=== PATIENT | female | born 1945 | race Caucasian/White ===

== ENCOUNTER 2016-09-29 13:21 | Emergency (ER) | payer MEDICARE, OTHER ==
[~2016-09-29] VITALS: Ht 165.1 cm; Wt 89.8 kg
[~2016-09-29 13:21] MED LIST: CHLO25TA2 PO; HYDR-3714 PO; NFNEB10T PO; OXYC-12 PO; PRAM0.252 PO
[2016-09-29] MEDS ORDERED: CYCL10TA9 (13:33)
[2016-09-29] MEDS ORDERED: NFNEB10T (13:33)
[2016-09-29] MEDS ORDERED: PRAM0.257 (13:33)
[2016-09-29] MEDS ORDERED: CHLO25TA22 (13:33)
--- NOTE | 2016-09-29 13:33 | ED Upper Extremity ---
General Chief Complaint: Laceration Stated Complaint: FALL/RIGHT ARM/LEG INJURY Nursing Triage Note: AMBULATED TO ROOM 06 WITHOUT DIFFICULTY. STATES SHE FELL OFF HER PORCH ONTO HER LEFT ARM. LEFT ARM BLEEDING THRU BANDAGE. Nursing Sepsis Screen: No Definite Risk Source: patient Exam Limitations: no limitations History of Present Illness Time seen by provider: 13:32 Initial Comments To ER with reports of a fall while going down her steps at home. She injured the dorsal aspect of the right forearm in the lateral aspect of the right lower leg. Denies hitting her head. Denies neck pain abdomen chest or pelvis pain. Denies hip pain. She is ambulatory to room 6. Her complaint is of a rather large laceration to the dorsal aspect of the right forearm. Onset: just prior to arrival Severity: moderate Pain/Injury Location: right arm Method of Injury: unknown Modifying Factors: Worse With Movement Allergies and Home Medications Allergies Coded Allergies: No Known Drug Allergies (Unverified , 10/03/14) Home Medications Amoxicillin/Potassium Clav 1 Each Tablet #14 1 EACH PO BID Prescribed by: ABDI CASTILLO on 09/29/16 1522 Chlorthalidone 25 Mg Tablet 25 MG PO DAILY (Reported) Chlorthalidone 25 Mg Tablet #90 (Reported) Cyclobenzaprine HCl 10 Mg Tablet #30 (Reported) Hydrocodone Bit/Acetaminophen 1 Tab Tablet 1 TAB PO Q8H PRN PRN PAIN (Reported) Hydrocodone/Acetaminophen 1 Each Tablet #14 1 EACH PO Q6H PRN PRN PAIN Prescribed by: ABDI CASTILLO on 09/29/16 1522 Nebivolol HCl 10 Mg Tab #30 (Reported) Nebivolol Hcl 10 Mg Tablet 5 MG PO DAILY (Reported) TAKES 1/2 (10MG) TABLET Oxycodone Hcl/Acetaminophen 1 Each Tablet #60 1-2 TAB PO Q4-6HR PRN PRN PAIN Prescribed by: JAZMÍN LOPEZ on 10/20/14 0748 Pramipexole Di-HCl 0.25 Mg Tablet #60 (Reported) Pramipexole Di-Hcl 0.25 Mg Tablet 0.25-0.5 MG PO HS PRN PRN RESTLESSNESS ( Reported) TAKES 1-2 (0.25MG) TABLETS Constitutional: see HPI EENTM: see HPI Respiratory: no symptoms reported Cardiovascular: no symptoms reported Genitourinary: no symptoms reported Musculoskeletal: see HPI Skin: no symptoms reported Psychiatric/Neurological: No Symptoms Reported Past Zozxvks-Mlyikd-Nwevey Hx Patient Social History Recent Foreign Travel: No Contact w/Someone Who Travel: No Recent Infectious Disease Expo: No Immunizations Up To Date Tetanus Booster (TDap): Less than 5yrs Date of Influenza Vaccine: Jul 09, 2014 Surgeries HX Surgeries: Yes Respiratory Hx Respiratory Disorders: No Cardiovascular Hx Cardiac Disorders: Yes Neurological Hx Neurological Disorders: Yes (RESTLESS LEGS) Reproductive System Hx Reproductive Disorders: No Genitourinary Hx Genitourinary Disorders: No Gastrointestinal Hx Gastrointestinal Disorders: Yes Gastrointestinal Disorders: Irritable Bowel Musculoskeletal Hx Musculoskeletal Disorders: Yes (OSTEOARTHRITIS) Endocrine Hx Endocrine Disorders: No HEENT HX ENT Disorders: Yes (GLASSES) Cancer Hx Cancer: No Psychosocial Hx Psychiatric Problems: No Integumentary HX Skin/Integumentary Disorder: No Blood Transfusions Hx Blood Disorders: No Adverse Reaction to a Blood Tr: No Family Medical History Family Medial History: Cardiovascular disease 19 MOTHER G8 BROTHER G8 SISTER Coronary thrombosis G8 BROTHER Diabetes mellitus 19 FATHER FH: pancreatic cancer 19 FATHER Physical Exam Vital Signs Vital Sign - Last 12Hours 09/29/16 13:27 Temp 99.5 Pulse 85 Resp 16 B/P 116/79 Pulse Ox 97 Capillary Refill : Less Than 3 Seconds General Appearance: WD/WN no apparent distress HEENT: PERRL/EOMI normal ENT inspection Neck: non-tender full range of motion Respiratory: no respiratory distress no accessory muscle use Gastrointestinal: non tender soft Shoulder: normal inspection non-tender Elbow/Forearm: Right, ecchymosis, pain, soft tissue tenderness, swelling Hand: normal inspection, non-tender, Right Neurologic/Tendon: normal sensation normal motor functions Neurologic/Psychiatric: alert normal mood/affect oriented x 3 Skin: normal color warm/dry Laceration Repair : Wound Location: Upper Extremities Wound Length (cm): 5 Wound's Depth, Shape: into muscle Wound Explored: clean Irrigated w/ Saline (ccs): 400 Betadine Prep?: Yes Anesthesia: Lidocaine w/ Epi Volume Anesthetic (ccs): 8 Wound Debrided: minimal Suture: Ethlion Suture Size: 4-0 Number of Sutures: 6 Layer Closure?: 1 Number Deep Layer Sutures: 0 Progress Due to the heavily bleeding nature of this wound it did discuss the case with Dr. Torres. He agrees that since this is a dorsal laceration and since she has a strong radial pulse angiogram was not necessary. Recommends thorough irrigation, closure. As such I anesthetized with 8 ml lidocaine 1 percent with epinephrine. Wound was then irrigated with a 500 mL bottle of saline with chlorhexidine and a splash shield. No foreign bodies were identified. There was clotted blood that remained in place. Laceration extended into muscle. A total of 6 sutures were placed, simple interrupted size 4-0 Ethilon thru skin/ sub-q tissues. A Stone drain was placed at the most ulnar side of the wound given the degree of swelling to allow for drainage. A pressure dressing was then applied over top of nonadherent gauze. Progress/Results/Core Measures Results/Orders My Orders Orders-ABDI CASTILLO APRN Forearm, Right, 2 Views (09/29/16 13:31) Tibia/Fibula, Right, 2 Views (09/29/16 13:31) Ceftriaxone Injection (Rocephin Injectio (09/29/16 13:45) Lidocaine/Epi 1% 1:100,000 (Xylocaine /E (09/29/16 13:45) Lidocaine 1% Injection (Xylocaine 1% Inj (09/29/16 13:45) Hand, Right, 3 Views (09/29/16 13:49) Hydrocodone/Apap 5/325 Tablet (Lortab 5 (09/29/16 14:15) Hydrocodone/Apap 5/325 Tablet (Lortab 5 (09/29/16 14:09) Ondansetron Oral Dissolve Tab (Zofran (09/29/16 15:00) Dipht,Pertuss(Acell),Tet Adult (Boostrix (09/29/16 15:45) Medications Given in ED Current Medications Medications Dose Ordered Sig/Paul Route Start Time Stop Time Status Last Admin Dose Admin Acetaminophen/ Hydrocodone Bitart 1 tab ONCE ONCE PO 09/29/16 14:15 09/29/16 14:16 DC 09/29/16 14:55 1 TAB Ceftriaxone Sodium 1,000 mg ONCE ONCE IM 09/29/16 13:45 09/29/16 13:46 DC 09/29/16 14:55 1,000 MG Diphtheria/ Tetanus/Acell Pertussis 0.5 ml ONCE ONCE IM 09/29/16 15:45 09/29/16 15:45 DC 09/29/16 15:43 0.5 ML Lidocaine HCl 2.1 ml ONCE ONCE INJ 09/29/16 13:45 09/29/16 13:46 DC 09/29/16 14:55 2.1 ML Lidocaine/ Epinephrine 20 ml ONCE ONCE INJ 09/29/16 13:45 09/29/16 13:46 DC 09/29/16 14:55 20 ML Ondansetron HCl 4 mg ONCE ONCE PO 09/29/16 15:00 09/29/16 15:01 DC 09/29/16 15:14 4 MG Vital Signs/I&O Vital Sign - Last 12Hours 09/29/16 09/29/16 13:27 15:44 Temp 99.5 Pulse 85 78 Resp 16 16 B/P 116/79 Pulse Ox 97 98 Departure Communication Progress Notes 1520- I have made a follow-up appointment for the patient with Dr. Torres on 10/05 at 315 p.m. I will have her return here on 10/01, 2 days from now for wound check and dressing change. 1533-Dr Torres here to see Pt in ER and agrees with plan of care. Would like follow up with Dr Rodriges. She is established with Dr Mendez so we will have her see him on Saturday 10/07 at 1:30 pm Impression Impression: Primary Impression: Forearm laceration Qualified Code: S51.811A - Laceration without foreign body of right forearm, initial encounter Disposition: HOME, SELF-CARE Condition: Stable Departure-Patient Inst. Decision time for Depature: 14:46 Referrals: ELIZABETH MORA MD (PCP/Family) Primary Care Physician LAURA TORRES DO MARTHA MENDEZ DO Patient Instructions: Laceration Repair With Stitches (DC) Add. Discharge Instructions: 1. Follow-up with Dr. Torres on 10/05/16 at 315 p.m. Return here on of this week on 10/01/16 in the afternoon for a dressing change and wound check 2. Return to ER for any concerns 3. Antibiotics as directed All discharge instructions reviewed with patient and/or family. Voiced understanding. Scripts Hydrocodone/Acetaminophen ([place] 5-325 Tablet)1 Each Tablet1 Each PO Q6H PRN PAIN #14 TAB Prov:ABDI CASTILLO [employer] 09/29/16 Amoxicillin/Potassium Clav (Augmentin 875-125 Tablet)1 Each Tablet1 Each PO BID #14 TAB Prov:ABDI CASTILLO APRN 09/29/16 Copy Copies To 1: MARTHA MENDEZ PETER J APRN Sep 29, 2016 13:33
--- OUTSIDE RECORDS SUMMARY | 2016-09-29 13:39 | XMS REPORT | Continuity of Care Document ---
Author Author [facility] Organization [facility] Address Unknown Phone Unavailable Care Team Providers Care Retirement Administrator Name Role Phone ELIZABETH MORA MD PCP Insurance Providers Payer Name Policy Number Subscriber Name Relationship [employer] [id number] Anabella Kemp 18 Self / Same As Patient Enter Insurance Name [id number] Anabella Kemp 18 Self / Same As Patient Advance Directives Directive Response Recorded Date/Time Advance Directives No 10/03/14 9:13am Health Care Power of Front End Drupal Developer No 10/03/14 9:13am Organ Donor Yes 10/03/14 9:13am Problems No known problems or medical conditions. Medications Medication Dose Route Sig Days/Qty Instructions Order Date Discontinued Date Status Pramipexole Di-Hcl 0.25-0.5 Mg PO BEDTIME PRN RESTLESSNESS TAKES 1-2 ( 0.25MG) TABLETS 10/03/14 Active Hydrocodone Bit/Acetaminophen 1 Tab PO EVERY 8HRS PRN PAIN 10/03/14 Active Nebivolol Hcl 5 Mg PO DAILY 10/03/14 Active Chlorthalidone 25 Mg PO DAILY 10/17/14 Active Oxycodone Hcl/Acetaminophen 1-2 Tab PO Q4-6HR PRN PAIN 60 Qty 10/20/14 Active Social History Social History Problem Response Recorded Date/Time Alcohol Use Denies Use 10/17/2014 7:01am Recreational Drug Use No 10/17/2014 7:01am Recent Foreign Travel No 10/17/2014 7:01am Recent Infectious Disease Exposure No 10/17/2014 7:01am Hospitalization with Isolation Denies 10/20/2014 2:06pm Smoking Status Never a Smoker 10/17/2014 10:28am Do you dip or chew tobacco? No 10/17/2014 10:28am Query Response Start Date Stop Date Smoking Status Never a Smoker Hospital Discharge Instructions No hospital discharge instructions. Plan of Care Discharge Date 10/20/14 1:56pm Disposition 30 STILL A PATIENT Instructions/Education Provided Total Knee Replacement (DC) Forms Provided Follow-Up Fax PDI Surgical Prescriptions See Medications Section Care Plan and Goals Please fax dc meds/orders to [facility] [phone] and call report [phone] to complete [facility] referral. Functional Status Query Response Date Recorded Comprehension Ability Understands Concepts October 18, 2014 8:15am Allergies, Adverse Reactions, Alerts Allergen Type Severity Reaction Status Last Updated No Known Drug Allergies Active 10/03/14 Immunizations Name Given Type Date of Influenza Vaccine 07/09/14 Historical Tetanus Booster (TDap) Less than 5yrs Historical Vital Signs Acute Vital Signs Vital Response Date/Time Temperature (Fahrenheit) 98.0 degrees F (97.6 - 99.5) Temperature (Calculated Celsius) 36.21793 degrees C (36.4 - 37.5) Temperature Source Temporal Pulse Rate (adult) 96 bpm (60 - 90) Respiratory Rate 18 bpm (12 - 24) O2 Sat by Pulse Oximetry 96 % (88 - 100) Blood Pressure 144/78 mm Hg Pain Pain Intensity 2 Height (Feet) 5 feet Height (Inches) 5.00 inches Height (Calculated Centimeters) 165.472933 cm Weight (Pounds) 199 pounds Weight (Calculated Grams) 18578.883 gm Weight (Calculated Kilograms) 90.216159 kilograms Calculated BMI 33.11 Results Laboratory Results Test Name Result Units Flags Reference Collection Date/Time Result Date/ Time Comments Hemoglobin 10.0 G/DL L 11.5-16.0 10/20/2014 5:38am 10/20/2014 6:27am Hematocrit 31 % L 35-52 10/20/2014 5:38am 10/20/2014 6:27am Sodium Level 132 MMOL/L L 135-145 10/19/2014 12:55pm 10/19/2014 1:21pm Potassium Level 3.5 MMOL/L L 3.6-5.0 10/19/2014 12:55pm 10/19/2014 1: 21pm Chloride Level 98 MMOL/L 98-107 10/19/2014 12:55pm 10/19/2014 1:21pm Carbon Dioxide Level 27 MMOL/L 21-32 10/19/2014 12:55pm 10/19/2014 1: 21pm Blood Urea Nitrogen 15 MG/DL 7-18 10/19/2014 12:55pm 10/19/2014 1:21pm Creatinine 0.78 MG/DL 0.60-1.30 10/19/2014 12:55pm 10/19/2014 1:21pm BUN/Creatinine Ratio 19 10/19/2014 12:55pm 10/19/2014 1:21pm Estimat Glomerular Filtration Rate > 60 10/19/2014 12:55pm 2014 1:21pm GFR INTERPRETIVE DATA UNITS FOR ESTIMATED GFR (eGFR): mL/min/1.73 M2 REFERENCE RANGE FOR ESTIMATED GFR (eGFR) eGFR NORMAL eGFR >60 MODERATELY DECREASED eGFR 30-59 SEVERLY DECREASED eGFR 15-29 KIDNEY FAILURE <15 (OR DIALYSIS) Glucose Level 108 MG/DL H 70-105 10/19/2014 12:55pm 10/19/2014 1:21pm Calcium Level 8.2 MG/DL L 8.5-10.1 10/19/2014 12:55pm 10/19/2014 1:21pm White Blood Count 10.5 10^3/uL 4.3-11.0 2014 9:20am 2014 9: 39am Red Blood Count 4.27 10^6/uL L 4.35-5.85 2014 9:20am 2014 9: 39am Hemoglobin 12.6 G/DL 11.5-16.0 2014 9:20am 2014 9:39am Hematocrit 39 % 35-52 2014 9:20am 2014 9:39am Mean Corpuscular Volume 91 FL 80-99 2014 9:20am 2014 9: 39am Mean Corpuscular Hemoglobin 30 PG 25-34 2014 9:20am 2014 9: 39am Mean Corpuscular Hemoglobin Concent 32 G/DL 32-36 2014 9: 9:39am Red Cell Distribution Width 13.3 % 10.0-14.5 2014 9:2014 9:39am Platelet Count 337 10^3/uL 130-400 2014 9:2014 9:39am Mean Platelet Volume 11.3 FL H 7.4-10.4 2014 9:2014 9: 39am Neutrophils (%) (Auto) 38 % L 42-75 2014 9:2014 9:39am Lymphocytes (%) (Auto) 45 % H 12-44 2014 9:2014 9:39am Monocytes (%) (Auto) 13 % H 0-12 2014 9:2014 9:39am Eosinophils (%) (Auto) 4 % 0-10 2014 9:2014 9:39am Basophils (%) (Auto) 1 % 0-10 2014 9:2014 9:39am Neutrophils # (Auto) 4.0 X 10^3 1.8-7.8 2014 9:2014 9: 39am Lymphocytes # (Auto) 4.7 X 10^3 H 1.0-4.0 2014 9:2014 9: 39am Monocytes # (Auto) 1.3 X 10^3 H 0.0-1.0 2014 9:2014 9: 39am Eosinophils # (Auto) 0.4 10^3/uL H 0.0-0.3 2014 9:2014 9 :39am Basophils # (Auto) 0.2 10^3/uL H 0.0-0.1 2014 9:2014 9: 39am Erythrocyte Sedimentation Rate 15 MM/HR 0-30 2014 9:2014 11:30am Prothrombin Time 12.1 SEC L 12.2-14.7 2014 9:20am 2014 10: 00am INR Comment 0.9 0.8-1.4 2014 9:20am 2014 10:00am INTERPRETIVE DATA SUGGESTED THERAPEUTIC RANGE FOR INR'S: VENOUS THROMBOSIS, PULMONARY EMBOLISM, OR PREVENTION OF SYSTEMIC EMBOLISM (EG. IN ATRIAL FIBRILLATION): 2.0 - 3.0 MECHANICAL PROSTHETIC HEART VALVES: 2.5 - 3.5* *NOTE: INR'S UP TO 4.5 MAY BE NECESSARY IN SELECTED GROUPS OF HIGH RISK PATIENTS. [employer] CONSENSUS CONFERENCE ON ANTITHROMBOTIC THERAPY (2000). Urine Color YELLOW 2014 9:07am 2014 9:46am Urine Clarity CLEAR 2014 9:07am 2014 9:46am Urine pH 7 5-9 2014 9:07am 2014 9:46am Urine Specific [place] 1.005 * 1.016-1.022 2014 9:07am 2014 9:46am Urine Protein NEGATIVE NEGATIVE 2014 9:07am 2014 9:46am Urine Glucose (UA) NEGATIVE NEGATIVE 2014 9:07am 2014 9: 46am Urine RBC (Auto) NEGATIVE NEGATIVE 2014 9:07am 2014 9: 46am Urine Ketones NEGATIVE NEGATIVE 2014 9:07am 2014 9:46am Urine Nitrite NEGATIVE NEGATIVE 2014 9:07am 2014 9:46am Urine Bilirubin NEGATIVE NEGATIVE 2014 9:07am 2014 9: 46am Urine Urobilinogen NORMAL MG/DL NORMAL 2014 9:07am 2014 9: 46am Urine Leukocyte Esterase NEGATIVE NEGATIVE 2014 9:07am 2014 9:46am Urine RBC NONE /HPF 2014 9:07am 2014 9:46am Urine WBC NONE /HPF 2014 9:07am 2014 9:46am Urine Bacteria NONE /HPF 2014 9:07am 2014 9:46am Urine Squamous Epithelial Cells 0-2 /HPF 2014 9:07am 2014 9:46am Urine Crystals NONE /LPF 2014 9:07am 2014 9:46am Urine Casts NONE /LPF 2014 9:07am 2014 9:46am Urine Mucus NEGATIVE /LPF 2014 9:07am 2014 9:46am Urine Culture Indicated NO 2014 9:07am 2014 9:46am Sodium Level 140 MMOL/L 135-145 2014 9:20am 2014 10:02am Potassium Level 3.2 MMOL/L L 3.6-5.0 2014 9:20am 2014 10: 02am Chloride Level 102 MMOL/L 98-107 2014 9:20am 2014 10:02am Carbon Dioxide Level 30 MMOL/L 21-32 2014 9:20am 2014 10: 02am Blood Urea Nitrogen 14 MG/DL 7-18 2014 9:20am 2014 10:02am Creatinine 0.77 MG/DL 0.60-1.30 2014 9:20am 2014 10:02am BUN/Creatinine Ratio 18 2014 9:20am 2014 10:02am Estimat Glomerular Filtration Rate > 60 2014 9:20am 2014 10:02am GFR INTERPRETIVE DATA UNITS FOR ESTIMATED GFR (eGFR): mL/min/1.73 M2 REFERENCE RANGE FOR ESTIMATED GFR (eGFR) eGFR NORMAL eGFR >60 MODERATELY DECREASED eGFR 30-59 SEVERLY DECREASED eGFR 15-29 KIDNEY FAILURE <15 (OR DIALYSIS) Glucose Level 88 MG/DL 70-105 2014 9:20am 2014 10:02am Calcium Level 9.1 MG/DL 8.5-10.1 2014 9:20am 2014 10:02am Total Bilirubin 0.5 MG/DL 0.1-1.0 2014 9:20am 2014 10:02am Alkaline Phosphatase 87 U/L 40-136 2014 9:20am 2014 10: 02am Aspartate Amino Transf (AST/SGOT) 17 U/L 5-34 2014 9:20am 2014 10:02am Alanine Aminotransferase (ALT/SGPT) 14 U/L 0-55 2014 9:20am 10/03 10:02am Total Protein 6.7 G/DL 6.4-8.2 2014 9:20am 2014 10:02am Albumin 3.5 G/DL 3.2-4.5 2014 9:20am 2014 10:02am Procedures Procedure Status Date Provider(s) Total replacement of knee joint completed 10/17/14 JAZMÍN LOPEZ MD Tracing only of electrocardiogram completed 10/03/14 JAZMÍN LOPEZ MD Encounters Encounter Location Date/Time Discharged Inpatient [facility] 10/17/14 6:00am Registered Clinic [facility] 10/03/14 8:49am
[2016-09-29] MEDS ORDERED: LIDOCAINE/EPI 1%-1:100,000 (XYLOCAINE) 20ML INJ ONE (13:45)
[2016-09-29] MEDS ORDERED: cefTRIAXone 1 GM (ROCEPHIN) VIAL IM ONE (13:45)
[2016-09-29] MEDS ORDERED: LIDOCAINE 1% INJ 20 ML (XYLOCAINE) VIAL INJ ONE (13:45)
[2016-09-29] MEDS ORDERED: HYDROcodone/APAP 5 MG/325 MG (LORTAB) TAB ONE (14:09)
[2016-09-29] MEDS ORDERED: HYDROcodone/APAP 5 MG/325 MG (LORTAB) TAB PO ONE (14:15)
--- NOTE | 2016-09-29 14:17 | Diagnostic Imaging Report ---
INDICATION: Fall with right hand injury AP, oblique and lateral views of the right hand are obtained. FINDINGS: There is narrowing of the third distal interphalangeal joint indicating osteoarthritis. No acute fracture or dislocation is identified. No abnormal lytic or sclerotic focus is seen, and there is no radiopaque foreign body. IMPRESSION: No acute abnormality. Dictated by: Dictated on workstation # [id number]
--- NOTE | 2016-09-29 14:24 | Diagnostic Imaging Report ---
INDICATION: Fall with right forearm injury There is extensive swelling of the right forearm with subcutaneous gas most pronounced along the radial aspect. There is, however, no evidence of an acute fracture. No radiopaque foreign body is identified. IMPRESSION: Extensive soft tissue injury to the forearm without acute osseous abnormality identified. Dictated by: Dictated on workstation # [id number]
--- NOTE | 2016-09-29 14:32 | Diagnostic Imaging Report ---
INDICATION: Right lower leg injury from a fall. AP and lateral views of the right tibia-fibula show no fracture, dislocation, or radiopaque foreign objects. There is a right knee prosthesis which appears to be intact. IMPRESSION: Negative right tibia fibula. Dictated by: Dictated on workstation # [id number]
[2016-09-29] MEDS ORDERED: ONDANSETRON 4 MG (ZOFRAN) ORAL DISSOLVE TAB PO ONE (15:00)
[2016-09-29] MEDS ORDERED: HYDR-757 PO (15:22)
[2016-09-29] MEDS ORDERED: AMOX-358 PO (15:22)
[2016-09-29 15:44] VITALS: BP 116/79
[2016-09-29] MEDS ORDERED: TETANUS,DIPTH,PERTUSS P/F (BOOSTRIX) 0.5 ML VIAL IM ONE (15:45)
--- NOTE | 2016-09-29 18:13 | Consultation ---
History of Present Illness History of Present Illness Patient Consulted On(sebas/time) 09/29/16 18:07 Date of Admission History of Present Illness Asked to see patient in ED by Abdi ybarra. Patient is a 70 year old female who had fall. Laceration on brick to right forearm. Patient also struck right lower extremity. Did not hit head and no LOC. Laceration on right forearm closed by Abdi Ybarra in ED. Patient states has feeling in all digits and moves without difficulty. No pain at this time in right upper extremity. No other complaints at this time. X rays of right upper extremity demonstrating soft tissue injury no fx. Allergies and Home Medications Allergies Coded Allergies: No Known Drug Allergies (Unverified , 10/03/14) Home Medications Amoxicillin/Potassium Clav 1 Each Tablet #14 1 EACH PO BID Prescribed by: ABDI YBARRA on 09/29/16 1522 Chlorthalidone 25 Mg Tablet 25 MG PO DAILY (Reported) Chlorthalidone 25 Mg Tablet #90 (Reported) Cyclobenzaprine HCl 10 Mg Tablet #30 (Reported) Hydrocodone Bit/Acetaminophen 1 Tab Tablet 1 TAB PO Q8H PRN PRN PAIN (Reported) Hydrocodone/Acetaminophen 1 Each Tablet #14 1 EACH PO Q6H PRN PRN PAIN Prescribed by: ABDI YBARRA on 09/29/16 1522 Nebivolol HCl 10 Mg Tab #30 (Reported) Nebivolol Hcl 10 Mg Tablet 5 MG PO DAILY (Reported) TAKES 1/2 (10MG) TABLET Oxycodone Hcl/Acetaminophen 1 Each Tablet #60 1-2 TAB PO Q4-6HR PRN PRN PAIN Prescribed by: JAZMÍN LOPEZ on 10/20/14 0748 Pramipexole Di-HCl 0.25 Mg Tablet #60 (Reported) Pramipexole Di-Hcl 0.25 Mg Tablet 0.25-0.5 MG PO HS PRN PRN RESTLESSNESS ( Reported) TAKES 1-2 (0.25MG) TABLETS Past Hjuwmbc-Mfqnkv-Svqsjk Hx Patient Social History Alcohol Use: Denies Use Recreational Drug Use: No Smoking Status: Never a Smoker Recent Foreign Travel: No Contact w/Someone Who Travel: No Recent Infectious Disease Expo: No Recent Hopitalizations: No Immunizations Up To Date Tetanus Booster (TDap): Less than 5yrs Date of Influenza Vaccine: Jul 09, 2014 Surgeries HX Surgeries: Yes Surgeries: Gallbladder, Hysterectomy Respiratory Hx Respiratory Disorders: No Cardiovascular Hx Cardiac Disorders: No Neurological Hx Neurological Disorders: Yes (RESTLESS LEGS) Reproductive System Hx Reproductive Disorders: No Genitourinary Hx Genitourinary Disorders: No Gastrointestinal Hx Gastrointestinal Disorders: Yes Gastrointestinal Disorders: Irritable Bowel Musculoskeletal Hx Musculoskeletal Disorders: Yes (OSTEOARTHRITIS) Endocrine Hx Endocrine Disorders: No HEENT HX ENT Disorders: Yes (GLASSES) Cancer Hx Cancer: No Psychosocial Hx Psychiatric Problems: No Integumentary HX Skin/Integumentary Disorder: No Blood Transfusions Hx Blood Disorders: No Adverse Reaction to a Blood Tr: No Family Medical History Significant Family History: No Pertinent Family Hx Family Medial History: Cardiovascular disease 19 MOTHER G8 BROTHER G8 SISTER Coronary thrombosis G8 BROTHER Diabetes mellitus 19 FATHER FH: pancreatic cancer 19 FATHER Review of Systems-General Constitutional: no symptoms reported EENTM: no symptoms reported Respiratory: no symptoms reported Cardiovascular: no symptoms reported Gastrointestinal: no symptoms reported Genitourinary: no symptoms reported Musculoskeletal: see HPI Skin: see HPI Psychiatric/Neurological: No Symptoms Reported Physical Exam-General Problems Physical Exam Vital Signs Vital Sign - Last 12Hours 09/29/16 13:27 Temp 99.5 Pulse 85 Resp 16 B/P 116/79 Pulse Ox 97 Capillary Refill : Less Than 3 Seconds General Appearance: no apparent distress HEENT: PERRL/EOMI Neck: supple Respiratory: no respiratory distress no accessory muscle use Cardiovascular: regular rate, rhythm Gastrointestinal: non tender soft Rectal: deferred Back: normal inspection Extremities: other (right forearm with skin tears and laceration already repaired. Does have significant swelling to the surrounding tissues. Moves extremity and digit without pain. Sensation intact and vascular distal pulses intact of right upper extremity) Neurologic/Psychiatric: it applications manager II-XII nml as tested no motor/sensory deficits alert normal mood/affect oriented x 3 Skin: other (echymosis right forearm, laceration already repaired bradley drain) Assessment/Plan Assessment/Plan Assessment/Plan fall with fore arm laceration repaired by ED vascular and neurologically intact if change such as pain, neuro or vascular change would consider eval by hand keep area clean and dry follow up closely LAURA TORRES DO Sep 29, 2016 18:13
== END 2016-09-29 15:44 | disposition home or self-care (01) ==
LOC: EDUNIT# 13:21 → ER 13:23
DX: S51.811A Laceration without foreign body of right forearm, initial encounter (principal); S89.91XA Unspecified injury of right lower leg, initial encounter; Z23 Encounter for immunization; W10.9XXA Fall (on) (from) unspecified stairs and steps, initial encounter; Y92.018 Other place in single-family (private) house as the place of occurrence of the external cause; Y99.8 Other external cause status
CPT/HCPCS: 73090; 73130; 73590; 90471; 90715; 96372; 99283

== ENCOUNTER 2016-10-01 13:53 | Emergency (ER) | payer MEDICARE, OTHER ==
[~2016-10-01] VITALS: Ht 162.6 cm; Wt 89.8 kg
[~2016-10-01 13:53] MED LIST changes: +AMOX-358 PO; +CHLO25TA22; +CYCL10TA9; +HYDR-757 PO; +NFNEB10T; +PRAM0.257
--- OUTSIDE RECORDS SUMMARY | 2016-10-01 13:58 | XMS REPORT | Continuity of Care Document ---
Author Author [facility] Organization [facility] Address Unknown Phone Unavailable Care Team Providers Care Manufacturing Team Leader Name Role Phone ELIZABETH MORA MD PCP Insurance Providers Payer Name Policy Number Subscriber Name Relationship [employer] [id number] Anabella Kemp 18 Self / Same As Patient Enter Insurance Name [id number] Anabella Kemp 18 Self / Same As Patient Advance Directives Directive Response Recorded Date/Time Advance Directives No 10/03/14 9:13am Health Care Power of Gas Transfer Operator No 10/03/14 9:13am Organ Donor Yes 10/03/14 [...] and Goals Please fax dc meds/orders to [facility] [phone] and call report [phone] to complete [facility] referral. Functional Status Query Response Date Recorded [...] F (97.6 - 99.5) Temperature (Calculated Celsius) 36.27127 degrees C (36.4 - 37.5) Temperature Source Temporal Pulse Rate (adult) 96 bpm (60 - 90) Respiratory Rate 18 bpm (12 - 24) O2 Sat by Pulse Oximetry 96 % (88 - 100) Blood Pressure 144/78 mm Hg Pain Pain Intensity 2 Height (Feet) 5 feet Height (Inches) 5.00 inches Height (Calculated Centimeters) 165.926111 cm Weight (Pounds) 199 pounds Weight (Calculated Grams) 35419.883 gm Weight (Calculated Kilograms) 90.857371 kilograms Calculated BMI 33.11 Results Laboratory Results [...] SELECTED GROUPS OF HIGH RISK PATIENTS. [employer] [place] CONSENSUS CONFERENCE ON ANTITHROMBOTIC THERAPY (2000). Urine Color YELLOW 2014 9:07am 2014 9:46am Urine Clarity CLEAR 2014 9:07am 2014 9:46am Urine pH 7 5-9 2014 9:07am 2014 9:46am Urine Specific [place] 1.005 * 1.016-1.022 2014 9:07am 2014 9:46am [...] Encounters Encounter Location Date/Time Discharged Inpatient Via [facility] 10/17/14 6:00am Registered Clinic [facility] 10/03/14 8:49am
--- NOTE | 2016-10-01 14:11 | ED Suture Removal/Wound Check ---
Suture/Wound Re-check General Appearance: WD/WN, no apparent distress Neuro/Tendon: normal sensation, normal motor functions, normal tendon functions Skin Exam: normal color, warm/dry Physical Exam Vital Signs Vital Sign - Last 12Hours 10/01/16 13:56 Pulse 81 Resp 18 B/P 116/83 Pulse Ox 98 O2 Delivery Room Air Capillary Refill : General Appearance: WD/WN no apparent distress HEENT: PERRL/EOMI normal ENT inspection Neck: non-tender Respiratory: no respiratory distress no accessory muscle use Neurologic/Psychiatric: alert normal mood/affect oriented x 3 Skin: normal color warm/dry other (laceration to the dorsal ulnar side of the forearm on the right that is healing. There is still some bloody serous drainage from around the [place] drain. She is scheduled to see Dr. Kaminski on Wednesday and Dr. Mendez on Wednesday as well.) Departure Impression Impression: Primary Impression: Forearm laceration Qualified Code: S51.811A - Laceration without foreign body of right forearm, initial encounter Disposition: HOME, SELF-CARE Condition: Stable Departure-Patient Inst. Decision time for Depature: 14:10 Referrals: ELIZABETH MORA MD (PCP/Family) Primary Care Physician Patient Instructions: Wound Care (DC) Add. Discharge Instructions: 1. Continue the antibiotics 2. Start the new pain medication and stop the hydrocodone 3. Keep your appointment with Dr. Kaminski on Wednesday afternoon and Dr. Mendez Wednesday morning. 4. Change the dressing with the material provided on Wednesday. All discharge instructions reviewed with patient and/or family. Voiced understanding. ABDI CASTILLO APRN Oct 01, 2016 14:11
[2016-10-01 14:12] VITALS: BP 116/83
== END 2016-10-01 14:15 | disposition home or self-care (01) ==
LOC: EDUNIT# 13:53 → ER 13:55
DX: S51.811A Laceration without foreign body of right forearm, initial encounter (principal); X58.XXXA Exposure to other specified factors, initial encounter; Y99.8 Other external cause status
CPT/HCPCS: 99282

== ENCOUNTER 2016-11-17 08:44 | Outpatient (RCR) | payer MEDICARE, OTHER ==
--- OUTSIDE RECORDS SUMMARY | 2016-10-07 12:30 | XMS REPORT | Continuity of Care Document ---
Author Author [facility] Organization [facility] Address Unknown Phone Unavailable Care Team Providers Care Slot Floor Attendant Name Role Phone ELIZABETH MORA MD PCP Insurance Providers Payer Name Policy Number Subscriber Name Relationship [employer] [id number] Anabella Kemp 18 Self / Same As Patient Enter Insurance Name [id number] Anabella Kemp 18 Self / Same As Patient Advance Directives Directive Response Recorded Date/Time Advance Directives No 10/03/14 9:13am Health Care Power of Certified Procedural Coder No 10/03/14 9:13am Organ Donor Yes 10/03/14 [...] and Goals Please fax dc meds/orders to [facility] [phone] and call report [phone] to complete [facility] referral. Functional Status Query Response Date Recorded [...] F (97.6 - 99.5) Temperature (Calculated Celsius) 36.03120 degrees C (36.4 - 37.5) Temperature Source Temporal Pulse Rate (adult) 96 bpm (60 - 90) Respiratory Rate 18 bpm (12 - 24) O2 Sat by Pulse Oximetry 96 % (88 - 100) Blood Pressure 144/78 mm Hg Pain Pain Intensity 2 Height (Feet) 5 feet Height (Inches) 5.00 inches Height (Calculated Centimeters) 165.313077 cm Weight (Pounds) 199 pounds Weight (Calculated Grams) 71543.883 gm Weight (Calculated Kilograms) 90.564826 kilograms Calculated BMI 33.11 Results Laboratory Results [...] SELECTED GROUPS OF HIGH RISK PATIENTS. [employer] [place] [employer] CONSENSUS CONFERENCE ON ANTITHROMBOTIC THERAPY (2000). Urine Color YELLOW 2014 9:07am 2014 9:46am Urine Clarity CLEAR 2014 9:07am 2014 9:46am Urine pH 7 5-9 2014 9:07am 2014 9:46am Urine Specific [place] 1.005 * 1.016-1.022 2014 9:07am 2014 9:46am [...] Encounters Encounter Location Date/Time Discharged Inpatient [facility] 10/17/14 6:00am Registered Clinic [facility] 10/03/14 8:49am
== END 2016-11-17 16:00 | disposition home or self-care (01) ==
LOC: WOUNDCARE 08:44
PROVIDERS: ATTEND Surgery
DX: S51.811A Laceration without foreign body of right forearm, initial encounter (principal); S50.11XA Contusion of right forearm, initial encounter; W19.XXXA Unspecified fall, initial encounter; Y99.8 Other external cause status
CPT/HCPCS: 10140; 11042; 99212

== ENCOUNTER 2016-12-21 13:15 | Outpatient (CLI) | payer MEDICARE, OTHER ==
[~2016-12-21] VITALS: Ht 162.6 cm; Wt 90.7 kg
[2016-12-21] MEDS ORDERED: BUPIVACAINE 0.5% 30 ML (SENSORCAINE) VIAL ONE ×2 (13:22→13:26)
[2016-12-21] MEDS ORDERED: LIDOCAINE 1% INJ 20 ML (XYLOCAINE) VIAL ONE (13:22)
[2016-12-21] MEDS ORDERED: TRIAMCINOLONE ACET (KENALOG-40) 40 MG/ML 1 ML VIAL ONE (13:22)
[2016-12-21] MEDS ORDERED: DEXAMETHASONE PF 10 MG/ML (DECADRON) VIAL ONE (13:26)
[2016-12-21 13:34] VITALS: BP 168/81
[2016-12-21 13:55] VITALS: BP 169/96
--- NOTE | 2016-12-21 14:57 | Pain Medicine-Procedure ---
Procedure Pre-Op/Post-Op Diagnosis Diagnosis: disc disorder with radiculopathy, lumbar Indications for Operation Low back pain Attending Surgeon Chuy Procedure Date of Service: December 21, 2016 Procedure: Transforaminal epidural Right L4 and L5 level Under fluoroscopic guidance DETAILS OF PROCEDURE: After obtaining informed consent from the patient, the patient's chart was reviewed. The patient was brought to the procedure room and was placed in a prone position. A time out was performed. The back was prepped with antiseptic solution. Under fluoroscopic guidance, the right L4 and L5 neural foramen was identified in the oblique view. 2 mL of 1% Lidocaine was used to anesthetize the skin over each site. Next, a 22-gauge 5-inch spinal needle was inserted through the skin under fluoroscopic guidance until it got to the right L4 and L5 neural foramina and position was confirmed in the oblique, AP and lateral view. After negative aspiration, 1 mL of contrast solution was injected at each site which showed contrast spreading into the nerve root and the epidural space in both the lateral and AP view at both L4 and L5 on the right side. Again after negative aspiration, 5 mg of dexamethasone was injected followed by 1 mLs of 0.5% Marcaine at each site. The washout of the medication was confirmed with good spread of the medication into the epidural space at the appropriate level and into the nerve root. The needle was flushed with 1% lidocaine and removed. The patient tolerated the procedure well and was taken to the recovery area after applying a bandaids to the sites. Patient was discharged to home in stable condition with no new neurologic deficits. Complications None PETERSON ARDON MD December 21, 2016 2:57 pm
== END 2016-12-21 14:00 ==
LOC: CARD 13:15
PROVIDERS: ATTEND Pain Medicine Pain Medicine
DX: M51.16 Intervertebral disc disorders with radiculopathy, lumbar region (principal); M47.816 Spondylosis without myelopathy or radiculopathy, lumbar region
CPT/HCPCS: 64483; 64484

== ENCOUNTER → 2017-03-14 | Outpatient (CLI) | payer MEDICARE, OTHER | LOC: LAB 18:39 | PROVIDERS: ATTEND Nurse Practitioner Family | DX: R30.0 Dysuria (principal) | CPT/HCPCS: 87077; 87088; 87186 ==

== ENCOUNTER 2017-08-08 12:24 | Emergency (ER) | payer MEDICARE, OTHER ==
[~2017-08-08] VITALS: Ht 162.6 cm; Wt 90.7 kg
--- NOTE | 2017-08-08 12:35 | ED General ---
General Stated Complaint: BACK PAIN/R KNEE PAIN Source of Information: Patient Exam Limitations: No Limitations History of Present Illness Time Seen by Provider: 12:27 Initial Comments The patient reports that the symptoms began early in the week and have gotten steadily worse. The knee bothered her and seemed to be swelling so she went out and bought a knee brace. She has this on at this time. 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 She states that several years ago she had x- rays of the low back and was told that she had pinched nerves. There has been no recent injury. Timing/Duration: 1 Week Allergies and Home Medications Allergies Coded Allergies: No Known Drug Allergies (Unverified , 10/03/14) Home Medications Amoxicillin/Potassium Clav 1 Each Tablet, 1 EACH PO BID, #14 Prescribed by: ABDI CASTILLO on 09/29/16 1522 Chlorthalidone 25 Mg Tablet, 25 MG PO DAILY, (Reported) Chlorthalidone 25 Mg Tablet, #90 (Reported) Cyclobenzaprine HCl 10 Mg Tablet, #30 (Reported) Hydrocodone Bit/Acetaminophen 1 Tab Tablet, 1 TAB PO Q8H PRN for PAIN, (Reported ) Hydrocodone/Acetaminophen 1 Each Tablet, 1 EACH PO Q6H PRN for PAIN, #14 Prescribed by: ABDI CASTILLO on 09/29/16 1522 Nebivolol HCl 10 Mg Tab, #30 (Reported) Nebivolol Hcl 10 Mg Tablet, 5 MG PO DAILY, (Reported) TAKES 1/2 (10MG) TABLET Oxycodone Hcl/Acetaminophen 1 Each Tablet, 1-2 TAB PO Q4-6HR PRN for PAIN, #60 Prescribed by: JAZMÍN LOPEZ on 10/20/14 0748 Pramipexole Di-HCl 0.25 Mg Tablet, #60 (Reported) Pramipexole Di-Hcl 0.25 Mg Tablet, 0.25-0.5 MG PO HS PRN for RESTLESSNESS, ( Reported) TAKES 1-2 (0.25MG) TABLETS Constitutional: see HPI EENTM: no symptoms reported Respiratory: no symptoms reported Cardiovascular: no symptoms reported Gastrointestinal: no symptoms reported Genitourinary: no symptoms reported Musculoskeletal: back pain, joint pain Skin: no symptoms reported Psychiatric/Neurological: No Symptoms Reported Past Dknqaer-Rywoml-Upsahi Hx Patient Social History Recent Foreign Travel: No Contact w/Someone Who Travel: No Recent Hopitalizations: No Immunizations Up To Date Tetanus Booster (TDap): Less than 5yrs Date of Influenza Vaccine: Jul 09, 2014 Surgeries Surgeries: Gallbladder, Hysterectomy Reproductive System Hx Reproductive Disorders: No Gastrointestinal Gastrointestinal Disorders: Irritable Bowel Blood Transfusions Adverse Reaction to a Blood Tr: No Family Medical History Significant Family History: No Pertinent Family Hx Family Medial History: Cardiovascular disease 19 MOTHER G8 BROTHER G8 SISTER Coronary thrombosis G8 BROTHER Diabetes mellitus 19 FATHER FH: pancreatic cancer 19 FATHER Physical Exam Vital Signs Vital Sign - Last 12Hours 08/08/17 12:27 Temp 97.3 Pulse 79 Resp 18 B/P (MAP) 182/83 (116) Pulse Ox 98 Capillary Refill : General Appearance: Moderate Distress Eyes: Bilateral Eye Normal Inspection HEENT: Normal ENT Inspection Neck: Normal Inspection Respiratory: Chest Non Tender, Lungs Clear, Normal Breath Sounds, No Accessory Muscle Use, No Respiratory Distress Cardiovascular: Regular Rate, Rhythm, No Edema, No Gallop, No JVD, No Murmur, Normal Peripheral Pulses Gastrointestinal: Normal Bowel Sounds, No Organomegaly, No Pulsatile Mass, Non Tender, Soft Extremity: Normal Capillary Refill, Normal Inspection, Normal Range of Motion, Non Tender, No Calf Tenderness, No Pedal Edema Neurologic/Psychiatric: Alert, Oriented x3, No Motor/Sensory Deficits, Normal Mood/Affect Skin: Normal Color, Warm/Dry Lymphatic: No Adenopathy Laceration Repair : Suture Size: 4-0 Progress/Results/Core Measures Suspected Sepsis SIRS Temperature: Pulse: Respiratory Rate: Laboratory Tests 08/08/17 12:59: White Blood Count 13.8H Blood Pressure / Mean: Laboratory Tests 08/08/17 12:59: Creatinine 0.87, Platelet Count 414H, Total Bilirubin 0.6 Results/Orders Lab Results Laboratory Tests Test 08/08/17 12:59 08/08/17 13:14 Range/Units White Blood Count 13.8 H 4.3-11.0 10^3/uL Red Blood Count 4.54 4.35-5.85 10^6/uL Hemoglobin 13.4 11.5-16.0 G/DL Hematocrit 42 35-52 % Mean Corpuscular Volume 91 80-99 FL Mean Corpuscular Hemoglobin 30 25-34 PG Mean Corpuscular Hemoglobin Concent 32 32-36 G/DL Red Cell Distribution Width 13.1 10.0-14.5 % Platelet Count 414 H 130-400 10^3/uL Mean Platelet Volume 11.2 H 7.4-10.4 FL Neutrophils (%) (Auto) 68 42-75 % Lymphocytes (%) (Auto) 19 12-44 % Monocytes (%) (Auto) 11 0-12 % Eosinophils (%) (Auto) 3 0-10 % Basophils (%) (Auto) 1 0-10 % Neutrophils # (Auto) 9.3 H 1.8-7.8 X 10^3 Lymphocytes # (Auto) 2.6 1.0-4.0 X 10^3 Monocytes # (Auto) 1.5 H 0.0-1.0 X 10^3 Eosinophils # (Auto) 0.4 H 0.0-0.3 10^3/uL Basophils # (Auto) 0.1 0.0-0.1 10^3/uL Sodium Level 136 135-145 MMOL/L Potassium Level 3.5 L 3.6-5.0 MMOL/L Chloride Level 97 L 98-107 MMOL/L Carbon Dioxide Level 26 21-32 MMOL/L Anion Gap 13 5-14 MMOL/L Blood Urea Nitrogen 17 7-18 MG/DL Creatinine 0.87 0.60-1.30 MG/DL Estimat Glomerular Filtration Rate > 60 BUN/Creatinine Ratio 20 Glucose Level 97 70-105 MG/DL Calcium Level 9.7 8.5-10.1 MG/DL Total Bilirubin 0.6 0.1-1.0 MG/DL Aspartate Amino Transf (AST/SGOT) 39 H 5-34 U/L Alanine Aminotransferase (ALT/SGPT) 39 0-55 U/L Alkaline Phosphatase 425 H 40-136 U/L Total Protein 8.0 6.4-8.2 GM/DL Albumin 3.3 3.2-4.5 GM/DL Urine Color YELLOW Urine Clarity VERY CLOUDY H Urine pH 6 5-9 Urine Specific [place] 1.020 1.016-1.022 Urine Protein 3+ H NEGATIVE Urine Glucose (UA) NEGATIVE NEGATIVE Urine Ketones NEGATIVE NEGATIVE Urine Nitrite NEGATIVE NEGATIVE Urine Bilirubin 1+ H NEGATIVE Urine Urobilinogen 8 H NORMAL MG/DL Urine Leukocyte Esterase 3+ H NEGATIVE Urine RBC (Auto) 2+ H NEGATIVE Urine RBC 2-5 H /HPF Urine WBC 25-50 H /HPF Urine Squamous Epithelial Cells >50 H /HPF Urine Crystals NONE /LPF Urine Bacteria FEW H /HPF Urine Casts PRESENT /LPF Urine Hyaline Casts 0-2 H /LPF Urine Mucus NEGATIVE /LPF Urine Culture Indicated YES My Orders Orders - TRISHA SHAFER MD Cbc With Automated Diff (08/08/17 12:26) Comprehensive Metabolic Panel (08/08/17 12:26) Ua Culture If Indicated (08/08/17 12:26) Urine Culture (08/08/17 13:14) Vital Signs/I&O Vital Sign - Last 12Hours 08/08/17 12:27 Temp 97.3 Pulse 79 Resp 18 B/P (MAP) 182/83 (116) Pulse Ox 98 Capillary Refill : Departure Communication (Admissions) Progress Notes UA shows pyuria. White blood count is 13,800. Impression Impression: Primary Impression: urinary tract infection Disposition: HOME, SELF-CARE Condition: Stable/Unchanged Departure-Patient Inst. Decision time for Depature: 13:36 Referrals: ELIZABETH MORA MD (PCP/Family) Primary Care Physician Add. Discharge Instructions: Plenty of fluids. Take antibiotics as directed. Scripts Cefdinir (Cefdinir) 300 Mg Capsule 300 MG PO twice a day, #12 CAP Prov: TRISHA SHAFER MD 08/08/17 TRISHA SHAFER MD Aug 08, 2017 12:35
[2017-08-08 13:07] LABS: BASOPHILS # (AUTO) 0.1 10^3/uL (0.0-0.1); BASOPHILS % (AUTO) 1 % (0-10); EOSINOPHILS # (AUTO) 0.4 10^3/uL (0.0-0.3); EOSINOPHILS % (AUTO) 3 % (0-10); HEMATOCRIT 42 % (35-52); HEMOGLOBIN 13.4 G/DL (11.5-16.0); LYMPHOCYTES # (AUTO) 2.6 X 10^3 (1.0-4.0); LYMPHOCYTES % (AUTO) 19 % (12-44); MEAN CORPUSCULAR HEMOGLOBIN 30 PG (25-34); MEAN CORPUSCULAR HGB CONC 32 G/DL (32-36); MEAN CORPUSCULAR VOLUME 91 FL (80-99); MEAN PLATELET VOLUME 11.2 FL (7.4-10.4); MONOCYTES # (AUTO) 1.5 X 10^3 (0.0-1.0); MONOCYTES % (AUTO) 11 % (0-12); NEUTROPHILS # (AUTO) 9.3 X 10^3 (1.8-7.8); NEUTROPHILS % (AUTO) 68 % (42-75); PLATELET COUNT 414 10^3/uL (130-400); RED BLOOD COUNT 4.54 10^6/uL (4.35-5.85); RED CELL DISTRIBUTION WIDTH 13.1 % (10.0-14.5); WHITE BLOOD COUNT 13.8 10^3/uL (4.3-11.0)
[2017-08-08 13:19] LABS: CLARITY,URINE VERY CLOUDY; COLOR,URINE YELLOW; GLUCOSE, URINE (UA) NEGATIVE (NEGATIVE); KETONES,URINE NEGATIVE (NEGATIVE); LEUKOCYTE ESTERASE ,URINE 3+ (NEGATIVE); NITRITE,URINE NEGATIVE (NEGATIVE); PH,URINE 6 (5-9); PROTEIN,URINE 3+ (NEGATIVE); UROBILINOGEN,URINE 8 MG/DL (NORMAL)
[2017-08-08 13:26] LABS: ALANINE AMINOTRANSFERASE 39 U/L (0-55); ALBUMIN 3.3 GM/DL (3.2-4.5); ALKALINE PHOSPHATASE 425 U/L (40-136); BILIRUBIN,TOTAL 0.6 MG/DL (0.1-1.0); BUN/CREATININE RATIO 20; CALCIUM 9.7 MG/DL (8.5-10.1); CARBON DIOXIDE 26 MMOL/L (21-32); CHLORIDE 97 MMOL/L (98-107); CREATININE SERUM 0.87 MG/DL (0.60-1.30); GFR ESTIMATED > 60; GLUCOSE 97 MG/DL (70-105); POTASSIUM 3.5 MMOL/L (3.6-5.0); SODIUM 136 MMOL/L (135-145)
[2017-08-08 13:26] LABS: BACTERIA,URINE FEW /HPF; BILIRUBIN,URINE 1+ (NEGATIVE); WBC,URINE 25-50 /HPF
[2017-08-08 13:27] LABS: HYALINE CASTS, URINE 0-2 /LPF; SQUAMOUS EPITHELIAL CELL,UR >50 /HPF
[2017-08-08] MEDS ORDERED: CEFD300C3 PO (13:37)
[2017-08-08] MEDS ORDERED: LIDOCAINE 1% INJ 20 ML (XYLOCAINE) VIAL INJ ONE (13:45)
[2017-08-08] MEDS ORDERED: cefTRIAXone 1 GM (ROCEPHIN) VIAL IM ONE (13:45)
[2017-08-08] MEDS ORDERED: LIDOCAINE PF 1% 5 ML (XYLOCAINE) AMP ONE (13:57)
[2017-08-08] MEDS ORDERED: TRAM50TA2 PO (14:19)
[2017-08-08 14:33] VITALS: BP 182/83
== END 2017-08-08 14:32 | disposition home or self-care (01) ==
LOC: EDUNIT# 12:24 → ER 12:25
DX: N39.0 Urinary tract infection, site not specified (principal); Z96.651 Presence of right artificial knee joint; Z90.710 Acquired absence of both cervix and uterus; Z87.19 Personal history of other diseases of the digestive system; Z82.49 Family history of ischemic heart disease and other diseases of the circulatory system; Z80.0 Family history of malignant neoplasm of digestive organs
CPT/HCPCS: 36415; 80053; 81000; 85025; 87077; 87088; 87186; 99284

== ENCOUNTER → 2017-08-20 | Outpatient (CLI) | payer MEDICARE, OTHER ==
[~2017-08-20] MED LIST changes: +CEFD300C3 PO; +TRAM50TA2 PO
--- NOTE | 2017-08-23 13:49 | RADIOLOGY REPORT ---
NAME: ANABELLA [facility]ITE [facility] REC#: [id number] PT STATUS: REG CLI : 1945 PHYSICIAN: ELIZABETH MORA MD ADMIT DATE: 08/20/17/RAD CORRECTED Signed Date of Exam:08/20/17 CT ABDOMEN W PROCEDURE: CT abdomen with contrast only. TECHNIQUE: Multiple contiguous axial images were obtained through the abdomen after the administration of intravenous contrast. INDICATION: Weight loss. There are no previous studies available for comparison. FINDINGS: By history, the patient has had a cholecystectomy. There are surgical clips in the gallbladder fossa. There is no mass or fluid collection in this area to suggest an acute abnormality. The proximal biliary tree is slightly dilated. This may be related to the prior cholecystectomy. The common bile duct itself does not appear to be significantly dilated. The pancreas, the adrenals, the kidneys, the aorta and the inferior vena cava are unremarkable for an acute abnormality. There is a 1.6 x 3.0 cm soft tissue density in the left upper quadrant near the diaphragm. There are several surgical clips in this area. This may represent a remnant of the spleen or splenosis. Correlation with the patient's history would be recommended. The stomach is filled with oral contrast and difficult to assess. There do appear to be postsurgical changes involving the stomach as well. There are also numerous surgical clips in the left mid abdomen. There is no mass or free fluid collection identified. The bone windows show no sign of a fracture or of a destructive lesion. There is scar formation in the left lung base. The lungs are otherwise clear. IMPRESSION: 1. There are postsurgical changes consistent with a cholecystectomy. There is no mass or abnormal fluid collection in the gallbladder fossa, however. 2. There are also postsurgical changes involving the stomach, the spleen and the mid abdomen on the left. Correlation with the patient's history would be recommended. 3. There is no acute abnormality identified. Dictated by: Dictated on workstation # [id number] Dict: 08/20/17 0926 Trans: 08/20/17 1230 CANDIE [id number] Interpreted by: BRITTANEY TOLENTINO MD Electronically signed by: BRITTANEY TOLENTINO MD 08/20/17 1230 MTDD
== END ==
LOC: RAD 08:15
PROVIDERS: ATTEND Internal Medicine
DX: R63.4 Abnormal weight loss (principal); R10.9 Unspecified abdominal pain; Z90.49 Acquired absence of other specified parts of digestive tract
CPT/HCPCS: 74160

== ENCOUNTER → 2017-11-15 | Outpatient (CLI) | payer MEDICARE, OTHER ==
--- NOTE | 2017-11-15 09:10 | Diagnostic Imaging Report ---
PROCEDURE: CT abdomen and pelvis without contrast. TECHNIQUE: Multiple contiguous axial images were obtained through the abdomen and pelvis without the use of intravenous contrast. INDICATION: Urinary tract infections getting more frequent in nature. COMPARISON: CT abdomen of 08/20/2017. FINDINGS: Evaluation of the abdominal viscera is mildly limited without contrast. Lower chest: Chronic subsegmental atelectasis/scar in the left lung base is unchanged. No pericardial or pleural effusion. Peritoneum: No free intraperitoneal air or fluid. Liver and biliary system: Unenhanced liver is normal. Status post cholecystectomy. No biliary duct dilatation. Spleen and Pancreas: The spleen is surgically absent. Unenhanced pancreas is grossly normal. Adrenals: Normal. tract: No renal or ureteral calculi. No obstructive uropathy. No discrete renal mass by noncontrast imaging. Uterus is surgically absent. No adnexal mass. Urinary bladder is decompressed, which limits evaluation. GI tract: Surgical changes at the level of stomach with the stomach being nondistended. Surgical changes in the small bowel in the left upper quadrant have small bowel to small bowel anastomosis. No evidence of anastomotic stricturing. No bowel obstruction. No pericolonic inflammatory changes. Appendectomy. Vasculature and Lymph nodes: Normal caliber aorta with moderate atherosclerotic plaquing. No abdominal or pelvic lymphadenopathy. Musculoskeletal: No concerning osseous lesion. IMPRESSION: 1. No urinary tract calculi or obstructive uropathy. 2. Multifocal surgical changes in the abdomen including splenectomy, appendectomy, cholecystectomy, hysterectomy and partial small bowel resection. Dictated by: Dictated on workstation # [id number]
== END ==
LOC: RAD 08:38
PROVIDERS: ATTEND Urology
DX: N39.0 Urinary tract infection, site not specified (principal); Z90.49 Acquired absence of other specified parts of digestive tract; Z90.81 Acquired absence of spleen; Z90.710 Acquired absence of both cervix and uterus
CPT/HCPCS: 74176

== ENCOUNTER → 2020-10-01 | Outpatient (CLI) | payer MEDICARE, OTHER ==
[~2020-10-01] MED LIST changes: +HYDR-4226 PO; -HYDR-757 PO; +MELO15TA14 PO; +TIZA4CAP8 PO; +TRAM-42 PO; -TRAM50TA2 PO; +TRM50T PO
== END ==
LOC: LABNPT 05:30
PROVIDERS: ATTEND Internal Medicine
DX: Z20.822 Contact with and (suspected) exposure to COVID-19 (principal)
CPT/HCPCS: 87635

== ENCOUNTER → 2021-12-19 | Outpatient (CLI) | payer MEDICARE, OTHER ==
[~2021-12-19] MED LIST changes: +CYCL10TA25; -CYCL10TA9
--- NOTE | 2021-12-19 14:07 | Diagnostic Imaging Report ---
INDICATION: Bilateral 3-D digital screening with CAD. COMPARISON: I have no priors for comparison. FINDINGS: Density 2. No breast mass, spiculated lesion, architectural distortion, suspicious calcifications or findings of malignancy. IMPRESSION: BI-RADS Category 1. ACR BI-RADS Category 1: Negative. Result letter will be mailed to the patient. Note: At least 10% of breast cancer is not imaged by mammography. Dictated by: Dictated on workstation # [id number]
== END ==
LOC: CARD 13:30
PROVIDERS: ATTEND Nurse Practitioner Family
DX: Z12.31 Encounter for screening mammogram for malignant neoplasm of breast (principal); I10 Essential (primary) hypertension; E78.5 Hyperlipidemia, unspecified; Z82.3 Family history of stroke
CPT/HCPCS: 77063; 77067; 93306

== ENCOUNTER → 2022-03-03 | Outpatient (CLI) | payer MEDICARE, OTHER ==
--- NOTE | 2022-03-03 14:45 | Diagnostic Imaging Report ---
INDICATION: Fall, pain. TECHNIQUE: Frontal, lateral, neutral, and lateral flexion and extension lumbar radiographs were performed. FINDINGS: There is very slight grade 1 anterolisthesis of L4 on L5 of about 2 mm. This is unchanged at flexion, extension, and neutral maneuvers. No pathological motion. The lumbar statures are normal. No compression deformity or other fracture pattern. IMPRESSION: Slight grade 1 anterolisthesis of L4 on L5 with no motion at flexion or extension. No fracture identified. Dictated by: Dictated on workstation # [id number]
== END ==
LOC: RAD 13:25
PROVIDERS: ATTEND Registered Nurse
DX: M43.16 Spondylolisthesis, lumbar region (principal); M54.16 Radiculopathy, lumbar region
CPT/HCPCS: 72110

== ENCOUNTER → 2022-06-10 | Outpatient (CLI) | payer MEDICARE, OTHER ==
--- NOTE | 2022-06-10 16:09 | Diagnostic Imaging Report ---
INDICATION: Left foot pain. FINDINGS: 3 views. There is a transverse fracture along the base of the 5th metatarsal 12 mm from the tip of the styloid process. 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 IMPRESSION: Nondisplaced transverse fracture base of the 5th metatarsal. Dictated by: Dictated on workstation # [id number]
== END ==
LOC: RAD 12:02
PROVIDERS: ATTEND Nurse Practitioner Family
DX: S92.355A Nondisplaced fracture of fifth metatarsal bone, left foot, initial encounter for closed fracture (principal); X58.XXXA Exposure to other specified factors, initial encounter
CPT/HCPCS: 73630

== ENCOUNTER → 2022-10-07 | Outpatient (CLI) | payer MEDICARE, OTHER ==
--- NOTE | 2022-10-07 13:40 | Diagnostic Imaging Report ---
INDICATION: Fall, right chest pain. FINDINGS: Oblique views of the right ribs were performed. No appreciable lung contusion, pneumothorax, or hemothorax. No free air beneath the right diaphragm. No focal pleural hematoma and no displaced or radiographically appreciable rib fracture deformity. No abnormal new bone formation or osseous destruction. IMPRESSION: Unremarkable right rib series. Dictated by: Dictated on workstation # [id number]
== END ==
LOC: RAD 10:34
PROVIDERS: ATTEND Nurse Practitioner Family
DX: R07.89 Other chest pain (principal); W19.XXXA Unspecified fall, initial encounter
CPT/HCPCS: 71100

== ENCOUNTER → 2023-03-09 | Outpatient (CLI) | payer MEDICARE, OTHER ==
--- NOTE | 2023-03-09 16:19 | Diagnostic Imaging Report ---
EXAMINATION: Right wrist radiographs, 3 views. COMPARISON: None. HISTORY: 77-year-old female, right wrist pain. FINDINGS: The bones appear potentially demineralized. There is no acute fracture. Bone alignment is unremarkable. The joint spaces are well preserved. IMPRESSION: 1. No identified acute bony abnormality of the right wrist. 2. The bones appear potentially demineralized. Dictated by: Dictated on workstation # [id number]
--- NOTE | 2023-03-09 17:49 | Diagnostic Imaging Report ---
EXAMINATION: Right forearm 2 views HISTORY: Arm injury COMPARISON: 09/29/2016 FINDINGS: No radiopaque foreign body is seen. Alignment is normal. No fracture is seen. Joint spaces are normal. IMPRESSION: 1. No fracture. Dictated by: Dictated on workstation # [id number]
--- NOTE | 2023-03-09 18:16 | Diagnostic Imaging Report ---
EXAMINATION: Mandible, three views. HISTORY: Jaw injury. COMPARISON: None available. FINDINGS: No displaced mandibular fracture is seen. There are multiple dental restorations. IMPRESSION: 1. No displaced mandibular fracture. Dictated by: Dictated on workstation # [id number]
== END ==
LOC: RAD 12:05
PROVIDERS: ATTEND Nurse Practitioner Family
DX: S09.93XA Unspecified injury of face, initial encounter (principal); S49.91XA Unspecified injury of right shoulder and upper arm, initial encounter; X58.XXXA Exposure to other specified factors, initial encounter; M25.531 Pain in right wrist
CPT/HCPCS: 70100; 73090; 73110